=== PATIENT | male | born 1960 | race Caucasian/White ===

== ENCOUNTER 2023-05-01 07:58 | Emergency (ER) | payer OTHER | END 2023-05-01 09:12 | disposition home or self-care (01) | LOC: CSHERS 07:58 | DX: S62.630A Displaced fracture of distal phalanx of right index finger, initial encounter for closed fracture (principal); S61.210A Laceration without foreign body of right index finger without damage to nail, initial encounter; I10 Essential (primary) hypertension; W22.8XXA Striking against or struck by other objects, initial encounter; Y92.009 Unspecified place in unspecified non-institutional (private) residence as the place of occurrence of the external cause | CPT/HCPCS: 12002 ==